=== PATIENT | female | born 1955 | race American Indian/Alaskan Native ===

== ENCOUNTER 2018-07-29 00:18 | Emergency (ER) | payer MEDICAID ==
[2018-07-29 02:14] LABS: BASO # 0.1 K/uL (0.0-0.2); BASO % 0.7 % (0.0-2.0); EOS # 0.3 K/uL (0.0-0.7); HEMOGLOBIN 13.4 g/dL (11.0-16.0); LYMPH # 2.9 K/uL (1.0-4.3); LYMPH % 29.3 % (20.0-40.0); MEAN CELL VOLUME 94.9 fL (81.0-99.0); MEAN CORPUSCULAR HEMOGLOBIN 31.1 pg (27.0-31.0); MEAN CORPUSCULAR HGB CONC 32.7 g/dL (33.0-37.0); MEAN PLATELET VOLUME 10.3 fL (7.2-11.7); MONO # 0.8 K/uL (0.0-0.8); MONO % 8.6 % (0.0-10.0); NEUT # 5.8 K/uL (1.8-7.0); NEUT % 58.4 % (50.0-75.0); NRBC % 0.1 % (0.0-2.0); RBC 4.3 Mil/uL (3.80-5.20); RED CELL DISTRIBUTION WIDTH 13.7 % (11.5-14.5); WHITE BLOOD COUNT 9.9 K/uL (4.8-10.8)
[2018-07-29 02:26] LABS: ALB/GLOB RATIO 1.4 (1.0-2.1); ALBUMIN 4.8 g/dL (3.5-5.0); ALT/SGPT 15 U/L (9-52); AST/SGOT 61 U/L (14-36); BLOOD UREA NITROGEN 17 mg/dL (7-17); CALCIUM 9.6 mg/dl (8.6-10.4); GFR NON-AFRICAN AMERICAN > 60
[2018-07-29 03:52] VITALS: BP 119/73; PULSE 72; RESP 16; TEMP 97.9; O2SAT 98
--- NOTE | 2018-07-29 05:33 | C.PDOC ---
History Of Present Illness 62 year old female presents with lower back pain for the past 2 days. Patient has Hx of lower back pain, does not have any medications to take for it. Denies weakness, numbness, or incontinence. Patient is also complaining of a painful lump to the back of the left calf for the past few days. Denies trauma, recent prolonged travel, use of oral contraceptives, or Hx of coagulopathy. Patient is also a heroin abuser, denies IVDA, only uses intranasally, has never used through her left leg. Time Seen by Provider: 07/29/18 01:23 Chief Complaint (Nursing): High Blood Pressure History Per: Patient History/Exam Limitations: no limitations Onset/Duration Of Symptoms: Days Current Symptoms Are (Timing): Still Present Recent travel outside of the [place]: No Past Medical History Reviewed: Historical Data, Nursing Documentation, Vital Signs Vital Signs: Last Vital Signs Temp 97.9 F 07/29/18 03:51 Pulse 72 07/29/18 03:51 Resp 16 07/29/18 03:51 BP 119/73 07/29/18 03:51 Pulse Ox 98 07/29/18 03:51 - Medical History PMH: Denies: Chronic Kidney Disease Family History: States: Unknown Family Hx - Social History Hx Alcohol Use: No Hx Substance Use: Yes (HEROIN) - Immunization History Hx Tetanus Toxoid Vaccination: No Hx Influenza Vaccination: No Hx Pneumococcal Vaccination: No Review Of Systems Constitutional: Negative for: Fever, Chills Cardiovascular: Negative for: Chest Pain, Palpitations Respiratory: Negative for: Cough, Shortness of Breath Genitourinary: Negative for: Dysuria, Incontinence, Hematuria Musculoskeletal: Positive for: Back Pain, Other (Painful lump to back of left calf) Neurological: Negative for: Weakness, Numbness Physical Exam - Physical Exam Appears: Non-toxic, Other (elevated BP on arrival) Skin: Warm Head: Atraumatic, Normacephalic Eye(s): bilateral: Normal Inspection Oral Mucosa: Moist Chest: Symmetrical, No Tenderness Cardiovascular: Rhythm Regular, Other (Hypertensive) Respiratory: Normal Breath Sounds, No Rales, No Rhonchi, No Wheezing Gastrointestinal/Abdominal: Normal Exam, Soft, No Tenderness Back: No CVA Tenderness, No Vertebral Tenderness, Paraspinal Tenderness (Mild lumbar), No Straight Leg Raising Extremity: Normal ROM (x4), No Calf Tenderness, Other (2x2cm mobile tender ori rated mass to left calf with some localized erythema and warmth , non fluctuant) Pulses: Left Dorsalis Pedis: Normal, Right Dorsalis Pedis: Normal Neurological/Psych: Oriented x3, Normal Speech, Normal Motor, Normal Sensation Gait: Steady ED Course And Treatment - Laboratory Results Result Diagrams: 07/29/18 02:11 07/29/18 02:11 Lab Results: D-Dimer, Quantitative 607 ng/mlDDU (0-243) H 07/29/18 02:11 Total Bilirubin 0.7 mg/dL (0.2-1.3) 07/29/18 02:11 AST 61 U/L (14-36) H 07/29/18 02:11 ALT 15 U/L (9-52) 07/29/18 02:11 Alkaline Phosphatase 78 U/L (38-126) 07/29/18 02:11 Total Protein 8.2 g/dL (6.3-8.3) 07/29/18 02:11 Albumin 4.8 g/dL (3.5-5.0) 07/29/18 02:11 Globulin 3.4 gm/dL (2.2-3.9) 07/29/18 02:11 Albumin/Globulin Ratio 1.4 (1.0-2.1) 07/29/18 02:11 O2 Sat by Pulse Oximetry: 98 (Room air) Pulse Ox Interpretation: Normal Progress Note: Labs ordered, ddimer slightly elevated but no definite suspicion for DVT on physical exam, likely skin cyst vs earler abscess, advised patient to started keflex, take motrin for pain, and return if moderate calf swelling, SOB, or worse. Pt also was informed of BP reading on arrival which has normalized without the use of hypertensives. Pt advised follwo up in clinic, Return precautions were discussed and pt AAOX3 verbalized understanding Reassessment Condition: Improved Medical Decision Making Medical Decision Makin62 y/o female heroin addict, non IVDA h/o of chronic low back pain and lump to left calm, elev BPa on arrival- Pt states new onset Back pain is lower towards sacrum worse on ambulation- Aortic dissection, spinal cord comrpression, nusculoskeletal pain were all considerd. pain is most likely muscular and BP has self improved. - Disposition Counseled Patient/Family Regarding: Diagnosis, Need For Followup - Disposition Referrals: [facility] [Outside] Disposition: HOME/ ROUTINE Disposition Time: 05:29 Condition: STABLE Additional Instructions: Take medications as directed Please follwo up in clinic tomorrow Return to ER if increasing swelling to leg, fever, difficulty breathing or worse Prescriptions: Cephalexin [cephalexin] 500 mg PO Q6 #28 cap Ibuprofen [Motrin] 600 mg PO Q6H #20 tab Instructions: Low Back Pain in Adults, Skin Abscess, Lung Abscess Forms: [employer] (Faroese) - Clinical Impression Clinical Impression: Abscess of leg, left, Low back pain - PA / HERPETOLOGIST / Resident Statement MD/DO has reviewed & agrees with the documentation as recorded. - Scribe Statement The provider has reviewed the documentation as recorded by the Scribamrit Randle All medical record entries made by the Vaheibamrit were at my direction and personally dictated by me. I have reviewed the chart and agree that the record a ccurately reflects my personal performance of the history, physical exam, medical decision making, and the department course for this patient. I have also personally directed, reviewed, and agree with the discharge instructions and disposition.
--- NOTE | 2018-07-31 20:56 | CARD ---
APPROVED REPORT Date of service: 07/29/2018 EKG Measurement Heart [id number] <Conclusion> Normal sinus rhythm Possible Anterior infarct, age undetermined Abnormal ECG
== END 2018-07-29 05:49 | disposition home or self-care (01) ==
LOC: C.ER 00:18
DX: L02.416 Cutaneous abscess of left lower limb (principal); M54.5 Low back pain
CPT/HCPCS: 80053; 84443; 85025; 85378; 93005; 96374; 99283; J1885